=== PATIENT | male | born 1950 | race Caucasian/White ===

== ENCOUNTER 2016-08-31 11:58 | Emergency (ER) | payer OTHER ==
[2016-08-31 12:04] VITALS: BP 142/69
--- NOTE | 2016-08-31 12:51 | RAD ---
HISTORY: Head injury COMPARISONS: None TECHNIQUE: Multiple contiguous axial CT scans were obtained of the head without intravenous contrast. FINDINGS: HEMORRHAGE/INFARCT: There is no hemorrhage or acute infarct. MASSES/SHIFT: There is no mass or shift. EXTRA-AXIAL SPACES: There are no extra-axial fluid collections. SULCI AND VENTRICLES: The sulci and ventricles are normal in size and position for the patient's stated age. CEREBRUM: There are no focal parenchymal abnormalities. BRAINSTEM: There are no focal parenchymal abnormalities. CEREBELLUM: There are no focal parenchymal abnormalities. VESSELS: The vessels are grossly normal. PARANASAL SINUSES: The paranasal sinuses are clear. ORBITS: The orbits are unremarkable. BONES AND SOFT TISSUE: No bone or soft tissue abnormalities are noted. OTHER: None IMPRESSION: NO ACUTE INTRACRANIAL PATHOLOGY.
--- NOTE | 2016-08-31 13:19 | ED ---
Head Injury - HPI Summary HPI Summary: 66F presents with head injury two days ago. He dropped a shelve on head. His primary sent him in for a CT. He denies any LOC or vomiting. He denies any change in vision. He was nauseous immediately afterwards but that has resolved. He admits to fatigue but denies any lightheadedness. He is not on any blood thinners. He denies any other injury. - History Of Current Complaint Chief Complaint: EDHeadInjury Stated Complaint: HIT TO HEAD/HEADACHE,NAUSEA Time Seen by Provider: 08/31/16 12:13 Pain Intensity: 3 PMH/Surg Hx/FS Hx/Imm Hx Endocrine/Hematology History: Denies: Hx Anticoagulant Therapy, Hx Diabetes Cardiovascular History: Reports: Hx Hypertension Infectious Disease History: No Infectious Disease History: Denies: Traveled Outside the [place] in Last 30 Days - Family History Known Family History: Positive: Hypertension - Social History Alcohol Use: Occasionally Substance Use Type: Reports: None Smoking Status (MU): Never Smoked Tobacco Review of Systems Negative: Fever Negative: Chest Pain Negative: Shortness Of Breath Negative: Vomiting Positive: Headache All Other Systems Reviewed And Are Negative: Yes Physical Exam Triage Information Reviewed: Yes Vital Signs On Initial Exam: Initial Vitals Temp Pulse Resp BP Pulse Ox 98.4 F 73 17 142/69 95 08/31/16 11:59 08/31/16 11:59 08/31/16 11:59 08/31/16 11:59 08/31/16 11:59 Vital Signs Reviewed: Yes Appearance: Positive: Well-Appearing Skin: Positive: Warm, Dry Head/Face: Positive: Normal Head/Face Inspection, Other - no step off, racoon eyes, jara sign Eyes: Positive: Normal, Conjunctiva Clear ENT: Positive: Normal ENT inspection, Pharynx normal, TMs normal Respiratory/Lung Sounds: Positive: Clear to Auscultation, Breath Sounds Present Cardiovascular: Positive: Normal, RRR Neurological: Positive: Sensory/Motor Intact, Alert, Oriented to Person Place, Time, CN Intact II-III, Heel to Toe, Finger to Nose - Bailey Coma Scale Best Eye Response: 4 - Spontaneous Best Motor Response: 6 - Obeys Commands Best Verbal Response: 5 - Oriented Diagnostics - Vital Signs Vital Signs Temp Pulse Resp BP Pulse Ox 08/31/16 12:55 98.4 F 73 17 142/69 95 08/31/16 11:59 98.4 F 73 17 142/69 95 - Laboratory Lab Statement: Any lab studies that have been ordered have been reviewed, and results considered in the medical decision making process. - CT head CT Interpretation: No Acute Changes - IMPRESSION: NO ACUTE INTRACRANIAL PATHOLOGY. CT Interpretation Completed By: Radiologist Head Injury Course/Dx Course Of Treatment: 66F presents with head injury two days ago. He dropped a shelve on head. His primary sent him in for a CT. He denies any LOC or vomiting. He was nauseous immediately afterwards but that has resolved. He is not on any blood thinners. He denies any other injury. normal neuro exam. CT head normal. told to follow up with primary. patient understands and agrees with plan - Diagnoses Differential Diagnosis/HQI/PQRI: Cerebral Contusion, Concussion Without LOC, Intracranial Bleed Provider Diagnoses: Head injury Discharge - Discharge Plan Condition: Good Disposition: HOME Patient Education Materials: Head Injury (ED) Referrals: No Primary Care Phys,NOPCP [Primary Care Provider] - Additional Instructions: Take Tylenol or ibuprofen for headache every 6 hours Modify activities as tolerated Follow up with primary within 7 days Return to ED if develop vomiting, severe headache, or any new or worsening symptoms
== END 2016-08-31 13:37 | disposition home or self-care (01) ==
LOC: ED 11:58
DX: R51 Headache (principal); W22.8XXA Striking against or struck by other objects, initial encounter; R11.10 Vomiting, unspecified; R53.83 Other fatigue; S09.90XA Unspecified injury of head, initial encounter; Y93.9 Activity, unspecified; Y92.9 Unspecified place or not applicable; Y99.9 Unspecified external cause status
CPT/HCPCS: 70450; 99281

== ENCOUNTER 2017-02-28 11:58 | Day surgery (SDC) | payer OTHER ==
[~2017-02-28 11:58] MED LIST: Buffered Lidocaine 0.9% SYRIN* 5 ML/SYR SYRINGE INTRADERM ONE; DiMENhydriNATE IV* 50 MG/ML VIAL IV PUSH PRN; Famotidine IV* 10 MG/ML 2 ML (20 mg) IV ONE; Famotidine IV* 10 MG/ML 2 ML (20 mg) ONE; Morphine INJ* 2 MG/ML 1 ML CARPUJECT IV PRN; PROCHLORPERAZINE INJ 5 MG/ML 2 ML VIAL IV PRN; Scopolamine 1.5 mg* PATCH TRANSDERM PRN; ceFAZolin 2 GM PREMIX (*) 2 GM/50 ML BAG IVPB ONE; fentaNYL* 50 MCG/ML 2 ML VIAL (100 MCG VIAL) IV PRN; oxyCODONE/Acetamin 5/325 MG* TAB PO PRN
[2017-02-28] MEDS ORDERED: fentaNYL* 50 MCG/ML 2 ML VIAL (100 MCG VIAL) ONE ×2 (13:39→16:48)
[2017-02-28] MEDS ORDERED: KETAMINE HCL* 50 MG/ML 10 ML VIAL ONE (13:40)
[2017-02-28] MEDS ORDERED: Midazolam* 1 MG/ML 2 ML VIAL (2 MG) ONE (13:40)
[2017-02-28] MEDS ORDERED: Bupivacaine 0.25% SDV* 30 ML ONE (13:54)
[2017-02-28] MEDS ORDERED: Dexamethasone IV* 4 MG/ML 1 ML (4 MG) ONE (16:12)
[2017-02-28] MEDS ORDERED: Ondansetron INJ* 2 MG/ML VIAL ONE (16:12)
[2017-02-28] MEDS ORDERED: Propofol* 10 MG/ML 20 ML BTL IV PUSH ONE (16:12)
[2017-02-28] MEDS ORDERED: Ketorolac INJ* 30 MG/ML 1 ML VIAL ONE (16:12)
[2017-02-28] MEDS ORDERED: Lidocaine 2% PF * 5 ML VIAL ONE (16:12)
[2017-02-28] MEDS ORDERED: HYDROcodone/ACETAMIN 5-325 MG* 1 TAB ONE (17:50)
[2017-02-28 18:24] VITALS: BP 155/82
--- NOTE | 2017-03-03 05:27 | OP ---
OPERATIVE REPORT: DATE OF OPERATION: 03/02/17 DATE OF : 54 SURGEON: Christophe Vásquez MD SLIP FEEDER: NAVI Echavarria ANESTHESIOLOGIST: Dr. Wilson. ANESTHESIA: General. PRE-OP DIAGNOSES: 1. Left stage 4 basal joint arthritis. 2. Left scaphotrapezoid degenerative joint disease. POST-OP DIAGNOSES: 1. Left stage 4 basal joint arthritis. 2. Left scaphotrapezoid degenerative joint disease. OPERATIVE PROCEDURE: 1. Left thumb carpal-metacarpal arthroplasty with trapeziectomy and distally based slit flexor carpi radialis tendon transfer for thumb suspension. 2. Left partial trapezoidectomy with FCR tendon interposition. INDICATIONS: Pat had progressive pain, it is progressive despite nonoperative treatments and quite debilitating to him. He wanted to proceed with surgery. He understands the risk of losing some strength and some persistent pain. ESTIMATED BLOOD LOSS: 2 mL. COMPLICATIONS: None. FINDINGS: As expected. DESCRIPTION OF PROCEDURE: Jesus was seen in the preoperative holding area. Correct site, side of the procedure were identified. We came back to the operating room. The arm was prepped and draped in usual fashion. A time-out was performed. The arm was exsanguinated with the Esmarch and the tourniquet inflated to 250 mmHg. I then made a 2 to 3 cm incision from the dorsum of the thumb down to its radial styloid. Dissection was carried down and the radial artery was mobilized. There were a couple of perforators that were cauterized. I then opened subperiosteal and capsular flaps. The soft tissue was released about the trapezium with the Teller blade. The rongeur was used and the trapezium was excised en bloc. I then performed a synovectomy with a rongeur. The scaphotrapezoid joint surface was examined and it was frankly arthritic with no cartilage remaining. I took my osteotome and excised the proximal 3 to 4 mm of the trapezoid. This came out nice and clean. I axially loaded the second ray and flexed and extended the wrist and hand and I could not get the 2 bony edges to abut. At this point, I went ahead and released the soft tissue off the dorsal radial aspect of the metacarpal base. I used sequentially larger drill bits to create a drill hole from the dorsal radial metacarpal base to the volar ulnar corner of the metacarpal right towards the base of the second metacarpal where the FCR tendon inserts. This was all irrigated out and then I turned my attention to harvesting the FCR tendon. I made a 1 to 2 cm transverse incision over the distal FCR tendon right at the wrist flexion crease. The FCR tendon sheath was released and the FCR tendon was retrieved up into the wound, split longitudinally and then a 26-gauge wire was passed between the split. I made 2 more transverse incisions to release the entirety of the FCR tendon sheath. The 26-gauge wire was then pulled sequentially into the proximal 2 incisions releasing the tendon and the musculotendinous junction. The tendon split was delivered into the distal wound. The muscular remnants were debrided off and the tendon was tubularized with 4-0 Ethibond suture. The tendon was delivered into the thumb base wound using 26-gauge wire as a shuttle. The split was taken all the way down to the base of the second metacarpal. The split end of the FCR tendon was delivered through my drill hole in the metacarpal base and brought back around the intact rim of the FCR tendon. Appropriate tension was set and the tendon transfer was secured with 3-0 Ethibond sutures. First [id number] suture grabbing all 3 limbs of the tendon transfer and the second 2 jydovh-vs-fqmim sutures sewing intact limb to intact limb. Remainder of the FCR tendon was sewn into a mat. This was secured with 4-0 Vicryl suture. This was in place as an interposition between the base of the trapezoid and the distal pole of the scaphoid. This provided an excellent nice tight fit. At this point, I irrigated out the wound , capsule was closed with 4-0 Ethibond suture. Skin at all of the incisions was closed with 4-0 Monocryl suture and Steri-Strips. The area was all infiltrated with 0.25% plain Marcaine. The wounds were dressed with 4x4, sterile Webril, and a thumb spica splint was applied. Tourniquet was deflated. The patient was taken to the recovery room in stable condition. [id number]/[facility] #: [id number] [facility]
[2017-03-03] MEDS ORDERED: Scopolamine PATCH Remove* 1 NOTE MISC PATCH OFF ONE (06:15)
== END 2017-02-28 18:26 | disposition home or self-care (01) ==
LOC: OREAST 11:58
PROVIDERS: ATTEND Orthopaedic Surgery Hand Surgery
DX: M18.12 Unilateral primary osteoarthritis of first carpometacarpal joint, left hand (principal); K21.9 Gastro-esophageal reflux disease without esophagitis; F41.9 Anxiety disorder, unspecified; J45.909 Unspecified asthma, uncomplicated
CPT/HCPCS: J0690; J1100; J1885; J2250; J2405; J2704; J3010

== ENCOUNTER 2017-10-07 07:05 | Observation (INO) | payer MEDICARE, OTHER ==
--- NOTE | 2017-09-20 07:20 | HP ---
CC: Dr. Osborne's Office. HISTORY AND PHYSICAL: DATE OF PLANNED ADMISSION AND SURGERY: 10/07/17 HISTORY OF PRESENT ILLNESS: Mr. Kennedy is a 67-year-old white male who is admitted with bladder outlet obstruction and prostate enlargement for transurethral resection of the prostate. Mr. Kennedy presented to my office about three months ago with increasing obstructive voiding symptoms consisting of slow stream, hesitancy, intermittency and feeling of incomplete bladder emptying. He, however, has been having nocturia only once or twice and day frequency about four to five times. At his initial visit to my office, bladder ultrasound showed a post-void residual of 300 cc. He was started on tamsulosin with no significant improvement. He had a cystoscopy, which showed a large obstructing median lobe of the prostate with heavy bladder trabeculations. Urodynamic studies showed a high voiding detrusor pressure reaching 100 cm of water with low flow and elevated postvoid residual in excess of 300 cc. Because of the above history finding, the failure of medical treatment, the patient is admitted for transurethral resection of the prostate. The patient had a recent episode of suspected prostatitis that was treated with the course of Ceftin. His urine culture grew actinomyces and followup urine culture preoperatively was negative. His PSA in March 2017 was 1. PAST MEDICAL HISTORY AND SYSTEM REVIEW: He has history of Asthma and allergies and is maintained on: 1. Albuterol 1 to 2 puffs as needed. 2. Gaviota 180 mg daily. 3. Vfkpidap83 mg daily. 4. Symbicort 2 puffs twice a day. 5. Xyzal 5 mg daily as needed. 6. He is on multivitamins. PAST SURGICAL HISTORY: Past surgery history is relevant for bilateral vasectomy that I performed on him in 1994. No other problems. ALLERGIES: He denies any allergies to medications. FAMILY HISTORY: Negative for prostate carcinoma. PHYSICAL EXAMINATION GENERAL: Pleasant and healthy-looking white male who looks good for his age. VITAL SIGNS: Blood pressure 120/70, pulse of 70. LUNGS: Clear. HEART: Regular and rhythmic. No murmurs. ABDOMEN: Soft without any masses. There is some suprapubic distention. RECTAL EXAM: Done at his initial presentation showed slightly enlarged but nonsuspicious prostate. IMPRESSION: Bladder outlet obstruction with elevated postvoid residual of 300 cc and high voiding detrusor pressure with failure of medical treatment. History of environmental allergies and asthma. PLAN: Plan is for transurethral resection of the prostate. I discussed that the indication for the procedure and the operation. Some of the potential complications including infection, hematuria, small incidence of urethral stricture and high incidence of retrograde ejaculation. I also discussed the alternatives to the TURP, although considering the large median lobe and the large postvoid residual, I think the TURP will give him the best chance of long-term results. All his and his 's questions were answered. [id number]/[facility] #: [id number] ETHAN
[~2017-10-07 07:05] MED LIST changes: +Dexamethasone TAB* 4 MG PO ONE; -Famotidine IV* 10 MG/ML 2 ML (20 mg) ONE; -Morphine INJ* 2 MG/ML 1 ML CARPUJECT IV PRN; +Morphine INJ* 2 MG/ML 1 ML SYRINGE (TWO MG - NEW SYRINGE VERSION) IV PRN; +Naloxone* 0.4 MG/ML 1 ML VIAL IV PRN; +Ondansetron INJ* 2 MG/ML VIAL ONE; +Scopolamine 1.5 mg* PATCH TRANSDERM ONE; -Scopolamine 1.5 mg* PATCH TRANSDERM PRN; -ceFAZolin 2 GM PREMIX (*) 2 GM/50 ML BAG IVPB ONE
[2017-10-07] MEDS ORDERED: Dexamethasone TAB* 4 MG ONE (07:14)
[2017-10-07] MEDS ORDERED: cefTRIAXone(*) 2 GM ADDV.VIAL IVPB ONE (07:14)
[2017-10-07] MEDS ORDERED: Famotidine IV* 10 MG/ML 2 ML (20 mg) ONE (07:14)
[2017-10-07] MEDS ORDERED: Ondansetron ODT TAB* 4 MG ONE (07:14)
[2017-10-07] MEDS ORDERED: Scopolamine 1.5 mg* PATCH ONE (07:44)
[2017-10-07] MEDS ORDERED: Midazolam* 1 MG/ML 5 ML VIAL (5 MG) ONE (07:58)
[2017-10-07] MEDS ORDERED: KETAMINE HCL* 50 MG/ML 10 ML VIAL ONE (07:58)
[2017-10-07] MEDS ORDERED: fentaNYL* 50 MCG/ML 2 ML VIAL (100 MCG VIAL) ONE (07:58)
[2017-10-07] MEDS ORDERED: Propofol* 500 MG/50 ML BTL ONE (09:32)
[2017-10-07] MEDS ORDERED: Phenylephrine INJ* 10 MG/ML 1 ML VIAL (10 MG) ONE (09:37)
[2017-10-07] MEDS ORDERED: oxyCODONE/Acetamin 5/325 MG* TAB PO PRN (11:48)
[2017-10-07] MEDS ORDERED: Oxybutynin TAB* 5 MG PO PRN (11:49)
[2017-10-07] MEDS ORDERED: Lidocaine 2% JELLY* 6 ML JELLY TOPICAL PRN (11:53)
[2017-10-07] MEDS ORDERED: Naproxen TAB* 250 MG PO PRN (12:03)
[2017-10-07] MEDS ORDERED: Albuterol HFA INHALER* 8 gm MDI INH PRN (12:09)
[2017-10-07] MEDS ORDERED: Tamsulosin CAP* 0.4 MG PO SCH (18:00)
[2017-10-07] MEDS ORDERED: Cetirizine* 10 MG TAB PO SCH (21:00)
--- NOTE | 2017-10-07 21:10 | OP ---
CC: Dr. Osborne * DATE OF OPERATION: 10/07/17 - ROOM #331 DATE OF : 54 SURGEON: Mike Donahue MD ANESTHESIOLOGIST: León Hunt MD ANESTHESIA: Spinal. PRE-OP DIAGNOSES: 1. Benign prostatic hyperplasia. 2. Bladder outlet obstruction. POST-OP DIAGNOSES: 1. Benign prostatic hyperplasia. 2. Bladder outlet obstruction. OPERATIVE PROCEDURE: 1. Cystoscopy. 2. Transurethral resection of the prostate. INDICATIONS: Mr. Kennedy is a 67-year-old white male who had a long history of bladder outlet obstruction characterized by frequency, slow stream, and large post void residual of about 300 cc. He did not improve on tamsulosin. Cystoscopy showed a large obstructing median lobe of the prostate and partially obstructing lateral lobes. Urodynamic studies showed high voiding detrusor pressure consistent with bladder outlet obstruction and good detrusor function. Because of the above history and findings, the failure of medical treatment, the above operation was advised and accepted. PATHOLOGY AT CYSTOSCOPY: The penile and bulbar urethrae looked normal. The prostatic urethra measured 3 cm in length and there was significant degree of obstruction mostly by a large median lobe and an elevated bladder neck. There was also a moderate obstruction by enlargement of the lateral lobes of the prostate. Examination of the bladder showed diffuse heavy trabeculations. There were two orthotopic normal-looking ureteral orifices. No suspicious bladder lesions were seen. No calculi or diverticula were noted. The prostate adenoma was only moderately vascular. DESCRIPTION OF PROCEDURE: After successful spinal anesthesia, the patient was placed in the lithotomy position and was prepped and draped for cystoscopy. Cystoscopy was performed. The bladder was carefully inspected and the above findings were noted. The resectoscope was then introduced inside the bladder. Mannitol-sorbitol was used for irrigation and the inflow and outflow were adjusted to avoid overdistention of the bladder. Resection of the median lobe was performed first down to the level of the bladder neck muscle fibers. The occluding prostate tissue projecting inside the bladder neck was then resected circumferentially. The floor of the prostatic fossa was then resected to the level of the verumontanum allowing the visualization of the bladder neck from the veru level. The left lobe was then resected starting at 5 o'clock and proceeding anteriorly. The right lobe was resected next. The roof and the apical tissues were resected last. The limits of the resection were the bladder neck proximally, the verumontanum distally, and the capsule circumferentially. There was, however, an open sinus at 11 o'clock in the mid prostatic urethra level. At the completion of the procedure, the verumontanum and external sphincter were intact. The prostatic fossa was wide open. The ureteral orifices were intact. There was good hemostasis except some oozing of blood from the open sinus. After thorough irrigation of the bladder and evacuation of all the prostate chips, the resectoscope was removed and a size 22-Lithuanian Montero catheter was passed inside the bladder and the balloon inflated with 40 cc of water. The catheter was placed under gentle traction and taped to the right thigh of the patient. Irrigation yielded clear returns. The patient tolerated the procedure well and left the operating room in good condition. The blood loss was estimated at about 50 cc. The irrigation fluid was all accounted for indicating no absorption. The specimen was prostate chips. [id number]/[facility] #: [id number] [facility]
[2017-10-07] MEDS: Mometasone/Formoter 200/5 MDI INH SCH (22:01)
[2017-10-08] MEDS ORDERED: cefTRIAXone(*) 1 GM in NS 0.9% 50 ML* 50 ML IVPB ONE (07:00)
[2017-10-08] MEDS ORDERED: CMCS: LoraTADine TAB(NF) 10 MG TAB (AUTOSUB to CETIRIZINE) PO SCH (09:00)
[2017-10-08] MEDS ORDERED: Pseudoephedrine HCL ER TAB* 120 MG PO SCH (09:00)
[2017-10-08] MEDS ORDERED: OSTEO BI FLEX PO SCH (09:00)
[2017-10-08] MEDS ORDERED: Vitamin THERAPEUTIC TAB PO SCH (09:00)
[2017-10-08] MEDS ORDERED: Cholecalciferol TAB* 1000 UNITS PO SCH (09:00)
[2017-10-08] MEDS ORDERED: Cyanocobalamin TAB* 500 MCG PO SCH (09:00)
[2017-10-08 09:27] VITALS: BP 101/84
[2017-10-08] MEDS: Mometasone/Formoter 200/5 MDI INH SCH (09:40)
--- NOTE | 2017-10-08 10:14 | DS ---
DISCHARGE SUMMARY: DATE OF ADMISSION: 10/07/17 DATE OF DISCHARGE: 10/08/17 FINAL DIAGNOSES: 1. Benign prostatic hyperplasia. 2. Bladder outlet obstruction. OPERATION: Transurethral resection of the prostate on 10/07/17. HISTORY: Mr. Kennedy is a 67-year-old while male who had progressive history of worsening obstructive voiding symptoms with slow stream, hesitancy, intermittency, and feeling of incomplete bladder emptying. No history of urinary tract infections or gross hematuria. Work-up in the office showed a postvoid residual of 300 cc. Cystoscopy showed a large obstructing prostate mostly by an obstructing median lobe. Urodynamic studies showed high voiding detrusor pressure, and while on tamsulosin, a postvoid residual in excess of 300 cc. Because of the above history, the failure of medical treatment, he was advised to undergo transurethral resection of the prostate. His PSA in March 2017 was 1. PAST MEDICAL HISTORY: He has history of asthma and environmental allergies. He is otherwise in excellent health. MEDICATIONS: He is maintained on: 1. Albuterol as needed. 2. Gaviota daily. 3. Claritin 10 mg daily. 4. Symbicort 2 puffs twice a day. 5. Xyzal 5 mg daily as needed. ALLERGIES: No allergies to medications. PHYSICAL EXAMINATION: Preoperative physical exam was all within normal. Rectal exam showed a moderately enlarged, but nonsuspicious prostate. LABORATORY DATA: Preoperative lab work was all within normal. COURSE IN HOSPITAL: The patient was admitted the morning of his surgery. He underwent an uncomplicated transurethral resection of the prostate. He was kept overnight for observation. He did very well. During the night his heart rate went down to 40 during his sleep, but his blood pressure was maintained and he was totally asymptomatic from it. When he woke up, his heart rate went up to normal. In the morning, urine was pink to light ambrose without any clots. Instructions were given for followup care. Patient will be seen in the office in 5 or 6 days for Montero catheter removal. Pathology on the resected prostate tissue was benign. [id number]/[facility] #: [id number] MTDD
[2017-10-10] MEDS ORDERED: Scopolamine PATCH Remove* 1 NOTE MISC PATCH OFF ONE (06:00)
== END 2017-10-08 10:05 | disposition home or self-care (01) ==
LOC: OR 07:05 → SSU 11:30
PROVIDERS: ADMIT Urology; ATTEND Urology
DX: N40.0 Benign prostatic hyperplasia without lower urinary tract symptoms (principal); Z79.899 Other long term (current) drug therapy; J45.909 Unspecified asthma, uncomplicated
CPT/HCPCS: 88305; A9270-GY; G0378; J0696; J2250; J2704; J3010; J8540

== ENCOUNTER → 2018-08-30 01:41 | Emergency (ER) | payer MEDICARE, OTHER ==
--- NOTE | 2018-08-30 03:25 | ED ---
Palpitations / Dysrhythmia - HPI Summary HPI Summary: This pt is a 68 y/o male [facility] [place]/o rapid heart rate today at about 01:00. Pt reports he had just gone to bed at around 0100 when he felt "muscle spasms" on his back that were rapid and uneven. He was not sleeping. Pt got a stethoscope out from his blood pressure kit and heard his heart beat going fast. He felt associated symptom of tightness on left sided jaw. Denies chest pain. Pt did not count his pulse. He states this episode of fast heart rate lasted about 15 minutes and resolved. Pt also reports doing relaxation and breathing techniques to alleviate symptoms. Currently denies palpitations, chest pain, nausea, vomiting. He states feeling better now. Pt has an upcoming appointment on 09/03/[address] Willson. PMHx: heart murmur. Pt had KAREN done 5 days ago after he was referred by his PCP when he was found to have a heart murmur. He notes he had pneumonia a couple of weeks ago and was placed on antibiotics for 1 week. Pt states he has been feeling winded easily for about 1 week now. - History of Current Complaint Chief Complaint: EDDysrhythmPalp Time Seen by Provider: 08/30/18 03:07 Hx Obtained From: Patient Onset/Duration: Lasting Minutes - 15, Resolved Severity Initially: Moderate Severity Currently: None Character: Fast Aggravating: Nothing Alleviating: Nothing Associated Signs & Symptoms: Negative - Allergy/Home Medications Allergies/Adverse Reactions: Allergies Allergy/AdvReac Type Severity Reaction Status Date / Time Cats Allergy See Comment Uncoded 08/30/18 03:10 PMH/Surg Hx/FS Hx/Imm Hx Endocrine/Hematology History: Denies: Hx Anticoagulant Therapy, Hx Diabetes Cardiovascular History: Reports: Hx Hypertension, Hx Valvular Heart Disease Denies: Hx Angina, Hx Pacemaker/ICD, Other Cardiovascular Problems/Disorders Respiratory History: Reports: Hx Asthma - ON MEDICATION FOR Musculoskeletal History: Reports: Hx Arthritis - LEFT HAND Sensory History: Reports: Hx Cataracts - LEFT, BEGINNING STAGE, Hx Contacts or Glasses Denies: Hx Hearing Aid Opthamlomology History: Reports: Hx Cataracts - LEFT, BEGINNING STAGE, Hx Contacts or Glasses Neurological History: Reports: Hx Migraine - TX WITH EXCEDRIN MIGRAINE AND REST Psychiatric History: Reports: Hx Anxiety - HX OF IN THE PAST, Hx Depression - HX OF IN THE PAST - Surgical History Surgery Procedure, Year, and Place: TONSILLECTOMY A CHILD. BIOPSIES DONE IN A OFFICE SETTING Hx Anesthesia Reactions: No Infectious Disease History: No Infectious Disease History: Denies: Traveled Outside the [place] in Last 30 Days - Family History Known Family History: Positive: Hypertension - Social History Alcohol Use: Rare Alcohol Amount: 1-2 BEERS, LAST WAS 08/16/2017 Substance Use Type: Reports: None Smoking Status (MU): Former Smoker Type: Cigarettes Amount Used/How Often: UP TO 1 PACK PER WEEK X 10 YEARS Length of Time of Smoking/Using Tobacco: 10 YEARS Have You Smoked in the Last Year: No Review of Systems Negative: Fever ENT: Other - POSITIVE: tightness on left jaw Positive: Palpitations. Negative: Chest Pain Negative: Vomiting, Nausea All Other Systems Reviewed And Are Negative: Yes Physical Exam - Summary Physical Exam Summary: VITAL SIGNS: Reviewed. GENERAL: Patient is a well-developed and nourished male who is lying comfortable in the stretcher. Patient is not in any acute respiratory distress. HEAD AND FACE: No signs of trauma. No ecchymosis, hematomas or skull depressions. No sinus tenderness. EYES: PERRLA, EOMI x 2, No injected conjunctiva, no nystagmus. EARS: Hearing grossly intact. Ear canals and tympanic membranes are within normal limits. MOUTH: Oropharynx within normal limits. NECK: Supple, trachea is midline, no adenopathy, no JVD, no carotid bruit, no c- spine tenderness, neck with full ROM. CHEST: Symmetric, no tenderness at palpation LUNGS: Clear to auscultation bilaterally. No wheezing or crackles. CVS: Regular rate and rhythm, S1 and S2 present, no gallops appreciated. Patient has a 3/6 systolic murmur over the apex. ABDOMEN: Soft, non-tender. No signs of distention. No rebound no guarding, and no masses palpated. Bowel sounds are normal. EXTREMITIES: FROM in all major joints, no edema, no cyanosis or clubbing. NEURO: Alert and oriented x 3. No acute neurological deficits. Speech is normal and follows commands. SKIN: Dry and warm Triage Information Reviewed: Yes Vital Signs On Initial Exam: Initial Vitals Temp Pulse Resp BP Pulse Ox 98 F 77 20 160/93 97 08/30/18 01:43 08/30/18 01:43 08/30/18 01:43 08/30/18 01:43 08/30/18 01:43 Vital Signs Reviewed: Yes Diagnostics - Vital Signs Vital Signs Temp Pulse Resp BP Pulse Ox 08/30/18 03:04 71 20 96 08/30/18 03:03 68 15 139/83 95 08/30/18 01:43 98 F 77 20 160/93 97 - Laboratory Result Diagrams: 08/30/18 03:40 08/30/18 03:40 Lab Statement: Any lab studies that have been ordered have been reviewed, and results considered in the medical decision making process. - EKG 01:52 Cardiac Rate: NL - at 75 bpm EKG Rhythm: Sinus Rhythm Summary of EKG Findings: Normal axis. Normal interval. No ischemic changes Course/Dx - Course Assessment/Plan: Pt is a 68 y/o male presenting to [facility] c/o rapid heart rate today at about 01:00. He felt associated symptom of tightness on left sided jaw. Denies chest pain. Pt states this episode of fast heart rate lasted about 15 minutes and resolved. Pt also reports doing relaxation and breathing techniques to alleviate symptoms. Currently denies palpitations, chest pain, nausea, vomiting. He states feeling better now. Test results without any significant abnormalities. EKG shows normal sinus rhythm at 75 bpm. Pt will be discharged home with follow up from Dr. Willson as planned on Saturday. He was given instructions to return to the ED for any worsening or new symptoms. - Diagnoses Provider Diagnoses: Palpitations Discharge - Sign-Out/Discharge Documenting (check all that apply): Patient Departure - Discharge home Patient Received Moderate/Deep Sedation with Procedure: No - Discharge Plan Condition: Stable Disposition: HOME Patient Education Materials: Heart Palpitations (ED) Referrals: Shannon Osborne MD [Primary Care Provider] - Jefferson Willson MD [Medical Doctor] - Additional Instructions: Please follow up with Dr. Willson, veterans service representative, as planned. RETURN TO EMERGENCY DEPARTMENT FOR ANY NEW OR WORSENING SYMPTOMS. - Attestation Statements Document Initiated by Scribe: Yes Documenting Scribe: Kym See Provider For Whom Scribe is Documenting (Include Credential): Lucille Rhodes MD Scribe Attestation: Kym Arana, scribed for Lucille Rhodes MD on 08/30/18 at 0458. Status of Scribe Document: Ready
[2018-08-30 03:48] LABS: ABS Eosinophils 0.2 10^3/ul (0-0.6); ABS Lymphocytes 2.1 10^3/ul (1.0-4.8); ABS Monocytes 0.5 10^3/ul (0-0.8); Eosinophil % 2.9 %; Hematocrit 41 % (42-52); Hemoglobin 14.1 g/dL (14.0-18.0); Lymphocyte % 35.6 %; Mean Corpuscular HGB Conc 35 g/dL (31-36); Mean Corpuscular Hemoglobin 34 pg (27-31); Mean Corpuscular Volume 98 fL (80-94); Mean Platelet Volume 9.1 fL (7.4-10.4); Nucleated Red Blood Cells % 0.2; Platelet Count 146 10^3/uL (150-450); Red Blood Count 4.18 10^6 /uL (4.18-5.48); Red Cell Distribution Width 13 % (10-15); White Blood Count 5.9 10^3/uL (3.5-10.8)
[2018-08-30 03:55] LABS: INR 0.97 (0.82-1.09)
[2018-08-30 04:05] LABS: Albumin 3.5 g/dL (3.2-5.2); Albumin/Globulin Ratio 1.6 (1-3); BUN/Creatinine Ratio 20.2 (8-20); Calcium 8.7 mg/dL (8.6-10.3); EGFR African American 97.2 (>60); EGFR Non-African American 80.3 (>60); Globulin 2.2 g/dL (2-4); Magnesium 1.9 mg/dL (1.9-2.7); Potassium 4.1 mmol/L (3.5-5.0); Total Bilirubin 0.7 mg/dL (0.2-1.0); Total Protein 5.7 g/dL (6.4-8.9)
[2018-08-30 04:07] LABS: Troponin I 0.01 ng/mL (<0.04)
[2018-08-30 04:35] LABS: TSH (Thyroid Stimulating Horm) 5.07 mcIU/mL (0.34-5.60)
[2018-08-30 05:04] VITALS: BP 136/85
== END | disposition home or self-care (01) ==
LOC: ED 01:41
DX: R00.2 Palpitations (principal); I10 Essential (primary) hypertension; I38 Endocarditis, valve unspecified; Z87.891 Personal history of nicotine dependence
CPT/HCPCS: 36415; 80053; 83735; 84443; 84484; 85025; 85610; 85730; 93005; 99283

== ENCOUNTER → 2018-09-08 10:06 | Day surgery (SDC) | payer MEDICARE ==
[~2018-09-08 10:06] MED LIST changes: +Acetaminophen TAB* 325 MG PO PRN; -Buffered Lidocaine 0.9% SYRIN* 5 ML/SYR SYRINGE INTRADERM ONE; -Dexamethasone TAB* 4 MG PO ONE; -DiMENhydriNATE IV* 50 MG/ML VIAL IV PUSH PRN; +Diazepam TAB(*) 5 MG ONE; -Famotidine IV* 10 MG/ML 2 ML (20 mg) IV ONE; +Heparin 2 UNITS/ML IVPREMIX* 2,000 UNIT/1,000 ML BAG IV ONE; +Heparin(*) 1000 UNIT/ML 10 ML VIAL CATH LAB IV ONE; +Iohexol 350 (CONTRAST) 200 ML MDV IV ONE; +Lidocaine 1% INJ* 10 MG/ML 30 ML SDV ONE; +Midazolam* 1 MG/ML 5 ML VIAL (5 MG) ONE; -Morphine INJ* 2 MG/ML 1 ML SYRINGE (TWO MG - NEW SYRINGE VERSION) IV PRN; +NS 0.9% 1000 ML** 1,000 ML IV SCH; -Naloxone* 0.4 MG/ML 1 ML VIAL IV PRN; -Ondansetron INJ* 2 MG/ML VIAL ONE; -PROCHLORPERAZINE INJ 5 MG/ML 2 ML VIAL IV PRN; -Scopolamine 1.5 mg* PATCH TRANSDERM ONE; +VERAPAMIL 2.5 MG/ML 2 ML VIAL ** 5 mg/2 ml ONE; +diPHENhydraMINE PO* 25 MG ONE; -fentaNYL* 50 MCG/ML 2 ML VIAL (100 MCG VIAL) IV PRN; +fentaNYL* 50 MCG/ML 2 ML VIAL (100 MCG VIAL) ONE; +nitroGLYCERIN DRIP* 25,000 MCG/250 ML BTL ONE; -oxyCODONE/Acetamin 5/325 MG* TAB PO PRN
[2018-09-08 15:23] VITALS: BP 121/63
--- NOTE | 2018-09-09 10:01 | CATH ---
CC: Dr. Osborne; Dr. Timothy Ambrocio, [place], [place]. * CARDIAC CATHETERIZATION REPORT: DATE OF CATHETERIZATION: 09/08/18 - [facility] CATH PROCEDURE: Cardiac catheterization including coronary angiography and left heart catheterization. INDICATION: Mitral regurgitation. The patient is a 68-year-old gentleman with a history of slight murmur. This murmur was noted to be significantly worse on recent physical exam. Echocardiogram showed severe mitral valve prolapse of the posterior leaflet of the mitral valve with [id number] mitral regurgitation and left atrial enlargement. Cardiac catheterization was recommended in anticipation of mitral valve repair. PROCEDURE: The patient was brought to the procedure room in a fasting state. Informed consent had been obtained prior to the procedure. All labs were reviewed. The patient was placed supine on the procedure table. His right radial area was prepped and draped in usual fashion. A 1% lidocaine was used for local anesthesia. The radial artery was entered by a Seldinger technique and a 6-Peruvian hydrophilic sheath was placed. An infusion of heparin, nitroglycerin, and verapamil was given through the sheath itself. The patient underwent coronary angiography and left heart catheterization using a JL3.5 catheter and a 5-Peruvian AR1 catheter. At the end of the procedure, all the sheaths and catheters were removed. The tolerated the procedure well and no complications. A total of 45 cc of Omnipaque dye was used. A total of 4.2 minutes of fluoro time was used. HEMODYNAMICS: Central aortic blood pressure 117/75 with a mean of 94. Left ventricular pressure 119/10 with an end-diastolic pressure of 18. CORONARY ARTERIES: 1. Left main artery: The left main was normal in size. It trifurcated into the LAD, ramus artery and circumflex artery. There was no evidence of stenosis. 2. Left anterior descending artery: The LAD was normal in size. It gave off 1 diagonal vessel. There was no evidence of stenosis. 3. Ramus artery. The ramus artery was a moderate sized vessel. There was no evidence of stenosis. 3. Left circumflex artery: The left circumflex artery was normal in size. It gave off 2 obtuse marginal branches. There was no evidence of stenosis. 4. Right coronary artery: The RCA is the large dominant vessel. It gave off the PDA and 2 posterolateral branches. There was no evidence of stenosis. IMPRESSION: 1. Normal coronary arteries. 2. Normal end-diastolic pressure. 3. Successful right radial artery catheterization. RECOMMENDATIONS: The patient will be evaluated for mitral valve repair. [id number]/[facility] #: [id number] ETHAN
== END | disposition home or self-care (01) ==
LOC: CHICATH 10:06
PROVIDERS: ATTEND Specialist
DX: I08.3 Combined rheumatic disorders of mitral, aortic and tricuspid valves (principal); R94.39 Abnormal result of other cardiovascular function study; R00.2 Palpitations; J45.909 Unspecified asthma, uncomplicated; F41.8 Other specified anxiety disorders; Q21.1 Atrial septal defect; Z87.891 Personal history of nicotine dependence
CPT/HCPCS: 93458; 99156; A9270-GY; J1644; J2250; J3010

== ENCOUNTER 2018-12-16 17:41 | Emergency (ER) | payer MEDICARE, OTHER ==
--- OUTSIDE RECORDS SUMMARY | 2018-12-16 18:26 | XMS REPORT | Continuity of Care Document ---
:1950 External Reference #:[id number] Author Name Cate Mensah NP (transmitted by agent of provider Kely Butts) Address [address] [place] [address] Care Team Providers Name Role Phone Shannon Osborne MD Care Team Information Mechanical System Technician [phone] Problems Active Problems Provider Date Allergic rhinitis due to pollen Song Cristina MD Onset: 08/26/2015 Allergic rhinitis Song Cristina MD Onset: 08/26/2015 Moderate persistent asthma, Snog Cristina MD Onset: 08/26/2015 uncomplicated Allergic rhinitis due to animals Nelly S. Lulastermdanica, RPA-C Onset: 2016 Idiopathic urticaria Nelly S. Lulastermacher, RPA-C Onset: 03/21/2016 Uncomplicated moderate persistent Nelly S. Fenstermacher, RPA-C Onset: 2016 asthma Exacerbation of moderate persistent Nelly S. Fenstermacher, RPA-C Onset: asthma Social History Type Date Description Comments Sex Unknown Tobacco Use Start: Unknown End: Unknown Former Cigarette Smoker Smoking Status Reviewed: 05/21/18 Former Cigarette Smoker Tobacco Use Start: Unknown End: Unknown Patient is a former smoker Allergies, Adverse Reactions, Alerts Description No Known Drug Allergies Medications Active Medications SIG Qnty Indications Ordering Date Provider Levocetirizine take 1 tablet by 30tabs J30.1 León Hannah, Dihydrochloride mouth daily at [facility] 9 5mg bedtime Tablets Symbicort inhale 2 puffs by 10.2units J30.1 León Hannah, mouth twice a day RPA-C 6 160-4.5mcg/Act Rinse mouth after Aerosol use Proair HFA 2 puffs every 4 as 8.500gm Christopher A. 108(90Base) needed MD Jonnie 0 mcg/Act Aerosol [place] Allergy 1 tab everyday as Unknown 180mg needed 0 Tablets Warfarin Sodium take 1 tablet by Unknown 1mg mouth Today And 0 Tablets Tomorrow, Then One as Directed. Max. Daily Dose Is One Tab Ra Pain Relief take 2 tablets by Unknown Acetaminophen mouth every 6 0 325mg hours if needed Tablets for fever Of 101 ... (Refer To Prescription Notes). Metoprolol Tartrate take One And 1/2 Unknown tablets by mouth 0 25mg Tablets twice a day Ferrous Gluconate take 1 tablet by Unknown mouth twice a day 0 324(38Fe) mg Tablets Folic Acid take 1 tablet by Unknown 1mg Tablets mouth once daily 0 Aspirin 81 take 1 tab by Unknown 81mg Tablets mouth daily. [address] Docusate Sodium take 1 cap by Unknown 100mg mouth twice daily. 0 Capsules Daily-[place] 1 by mouth every Unknown Tablets day 0 Levothyroxine Sodium Unknown 0 25mcg Tablets Probiotic Unknown Capsules 0 Immunizations Description No Information Available Vital Signs Date Vital Result Comment 11/28/2018 2:51pm BP Systolic 107 mmHg BP Diastolic 65 mmHg Height 69 inches 5'9" Weight 204.00 lb BMI (Body Mass Index) 30.1 kg/m2 Heart Rate 73 /min O2 % BldC Oximetry 95 % 05/21/2018 1:52pm BP Systolic 130 mmHg BP Diastolic 84 mmHg Height 69 inches 5'9" Weight 204.00 lb BMI (Body Mass Index) 30.1 kg/m2 Heart Rate 76 /min Respiratory Rate 18 /min Body Temperature 97.4 F O2 % BldC Oximetry 95 % Results Description No Information Available Procedures Description No Information Available Medical Devices Description No Information Available Encounters Description No Information Available Assessments Description No Information Available Plan of Treatment No Information Available Functional Status Description No Information Available Mental Status Description No Information Available Referrals Description No Information Available
--- OUTSIDE RECORDS SUMMARY | 2018-12-16 18:26 | XMS REPORT | Continuity of Care Document ---
:1950 External Reference #:[id number] Author Name Jefferson Willson M.D. (transmitted by agent of provider Winsome Tyson) Address [address] [place] [address] Care Team Providers Name Role Phone Shannon Osborne MD - Internal Care Team Information Salesperson [employer] Medicine Problems Active Problems Provider Date Localized, primary osteoarthritis of the wrist Christophe Vásquez MD Onset: Localized, primary osteoarthritis of the hand Christophe Vásquez MD Onset: 01/22 Social History Type Date Description Comments Sex Unknown Tobacco Use Start: Unknown 03/05 PPD hx 10 quit 40 yrs ago Smoking Status Reviewed: 11/18/18 1/2 PPD hx 10 quit 40 yrs ago ETOH Use Currently consumes alcohol ETOH Use Rarely consumes alcohol Recreational Drug Use Denies Drug Use Exercise Type/Frequency Does not exercise Allergies, Adverse Reactions, Alerts Active Allergies Reaction Severity Comments Date Paxil 01/18/2017 Effexor 01/18/2017 Medications Active Medications SIG Qnty Indications Ordering Date Provider Amoxicillin take 4 tablets by 4tabs I34.0 Jefferson Ray 11/18/2018 500mg Tablets mouth 1 hour Edita Willson before dental procedure Acetaminophen 2 every 4 hours Unknown 11/17/2018 325mg as needed for Tablets pain Ascorbic Acid 1 tab by mouth Unknown 11/17/2018 500mg daily Tablets Aspirin 81 1 by mouth every Unknown 11/17/[address] Folic Acid take one Unknown 11/17/2018 1mg Tablets capsule/tablet daily by mouth Furosemide 1 by mouth every Unknown 11/17/2018 20mg Tablets day Metoprolol Tartrate 1.5 tabs by mouth Unknown 11/17/2018 25mg twice a day Tablets Potassium Chloride SA 1 tab by mouth Unknown 11/17/2018 10 Meq Tablet daily Coumadin 1 by mouth every 30tabs Jefferson Ray 11/10/2018 1mg Tablets day as directed Edita Willson Symbicort 2 puff twice a Unknown 160-4.5mcg/Act day Aerosol Xyzal Allergy 24HR 1 by mouth every Unknown 5mg day Tablets Allergy Relief 1 by mouth every Unknown 180mg day Tablets Levothyroxine Sodium 1 by mouth every Unknown day 25mcg Tablets Probiotic 2 by mouth every Unknown Capsules day Multivitamin Gummies 2 gummies by Unknown Mens mouth daily Chewtabs Albuterol Sulfate HFA 1-2 puffs every Unknown 6 hours as needed 108(90Base) mcg/Act Aerosol Ferrous Gluconate 1 by mouth twice Unknown daily 324(38Fe) mg Tablets Medications Administered in Office Medication SIG Qnty Indications Ordering Provider Date Celestone 3 mg and 3mg Christophe Vásquez MD 01/18/2017 Injection Immunizations Description No Information Available Vital Signs Date Vital Result Comment 11/18/2018 1:27pm Height 69 inches 5'9" Weight 198.00 lb without shoes Heart Rate 80 /min radial regular BP Systolic Sitting 104 mmHg Lue reg cuff BP Diastolic Sitting 70 mmHg Lue reg cuff BP Systolic Standing 102 mmHg Lue reg cuff BP Diastolic Standing 68 mmHg Lue reg cuff BMI (Body Mass Index) 29.2 kg/m2 Ejection Fraction 60-65% ECHO 08/20/18 09/17/2018 9:27am Height 69 inches 5'9" Weight 206.12 lb with shoes Heart Rate 68 /min radial, skipped beat BP Systolic Sitting 126 mmHg LA, reg cuff BP Diastolic Sitting 74 mmHg LA, reg cuff BP Systolic Standing 114 mmHg LA, reg cuff BP Diastolic Standing 70 mmHg LA, reg cuff BMI (Body Mass Index) 30.4 kg/m2 Ejection Fraction 60%-65% echo 08/20/18 Results Test Date Facility Test Result H/L Range Note Inr/Protime 11/17/2018 [facility] Inr 1.19 High 0.82-1.[address] [place] [address] [phone] Inr/Protime 11/13/2018 [facility] Inr 1.31 High 0.82-1.[address] [place] [address] [phone] 1 Standard intensity warfarin therapeutic range: 2.0-3.0 High intensity warfarin therapeutic range: 2.5-3.5 2 Standard intensity warfarin therapeutic range: 2.0-3.0 High intensity warfarin therapeutic range: 2.5-3.5 Procedures Date Code Description Status 09/08/2018 86821 Left Heart Cath. Incl S/I Coronaries, Angio S/I V Gram If Completed Done 09/03/2018 57322 EKG Tracing & Interpretation Completed 08/26/2018 60234 Moderate Sedation Services; Same Phys Intl 15 Mins; PT >= Completed 5 Years 08/26/2018 22074 Color Flow Doppler/Interp & Reprt Completed 08/26/2018 59003 Pulse Wave/Continuous-Interp.RPT Completed 08/26/2018 85344 Echocardiography, Transesophageal, Real Time W/Image 2D Completed W/W/O M-M 08/20/2018 08344 ECHO Transthorasic Realtime 2D W Doppler & Color Flow Hosp Completed Medical Devices Description No Information Available Encounters Type Date Location Provider Dx Diagnosis Office Visit 11/18/2018 [facility] Jefferson Ray I34.0 Nonrheumatic mitral 1:15p Of [employer] AT ANJEL Willson M.D. (valve) insufficiency I34.1 Nonrheumatic mitral (valve) prolapse Office Visit 09/17/2018 9:30a [facility] Dayan STrey I34.0 Nonrheumatic mitral Milo, N.P. (valve) insufficiency I34.1 Nonrheumatic mitral (valve) prolapse R01.1 Cardiac murmur, unspecified Office Visit 09/03/2018 11:45a [facility] Jefferson Ray I34.0 Nonrheumatic mitral Of Tyrone Willson M.D. (valve) insufficiency I34.1 Nonrheumatic mitral (valve) prolapse Assessments Date Code Description Provider 11/18/2018 I34.0 Nonrheumatic mitral (valve) insufficiency Jefferson Willson M.D. 11/18/2018 I34.1 Nonrheumatic mitral (valve) prolapse Jefferson Willson M.D. 09/17/2018 I34.0 Nonrheumatic mitral (valve) insufficiency Dayan Pedraza, N.P. 09/17/2018 I34.1 Nonrheumatic mitral (valve) prolapse Dayan Pedraza, N.P. 09/17/2018 R01.1 Cardiac murmur, unspecified Dayan Pedraza, N.P. 09/08/2018 I34.0 Nonrheumatic mitral (valve) insufficiency Jefferson Willson M.D. 09/03/2018 I34.0 Nonrheumatic mitral (valve) insufficiency Jefferson Willson M.D. 09/03/2018 I34.1 Nonrheumatic mitral (valve) prolapse Jefferson Willson M.D. 08/26/2018 I34.0 Nonrheumatic mitral (valve) insufficiency Jefferson Willson M.D. 08/26/2018 I34.1 Nonrheumatic mitral (valve) prolapse Jefferson Willson M.D. 08/20/2018 R01.1 Cardiac murmur, unspecified Irineo Muñoz M.D. Plan of Treatment Future Appointment(s):01/06/2019 1:15 pm - Jefferson Willson M.D. at [facility]12/19/2018 10:00 am - Ica ECHO Schedule at [facility]12/17/2018 11:00 am - Nurse Visit IC at [facility]12/16/2018 11:30 am - Nurse Visit IC at [facility]11/18/2018 - Jefferson Willson M.D.I34.0 Nonrheumatic mitral (valve) insufficiencyNew Medication:Amoxicillin 500 mg - take 4 tablets by mouth 1 hour before dental procedureNew Orders:Echocardiogram, Scheduled: 12/19/18Holter Monitor, Scheduled : 12/16/18Follow up:6 weeksRecommendations:Continue to increase walking and lifting at a reasonable rateI34.1 Nonrheumatic mitral (valve) prolapse Functional Status Description No Information Available Mental Status Description No Information Available Referrals Refer to Dr Reason for Referral Status Appt Date Timothy Ambrocio MD Sent [address] [place], [place] [id number] [phone]
--- OUTSIDE RECORDS SUMMARY | 2018-12-16 18:26 | XMS REPORT | Continuity of Care Document ---
:1950 External Reference #:[id number] Author Name Cate Mensah NP (transmitted by agent of provider Song Cristina) Address [address] [place] [id number] Care Team Providers Name Role Phone Shannon Osborne MD Care Team Information Vocational Aide [phone] Problems Active Problems Provider Date Allergic rhinitis due to pollen Song Cristina MD Onset: 08/26/2015 Allergic rhinitis Song Cristina MD Onset: 08/26/2015 Moderate persistent asthma, Song Cristina MD Onset: 08/26/2015 uncomplicated Allergic rhinitis due to animals Nelly S. Chinaermdanica, RPA-C Onset: 2016 Idiopathic urticaria Nelly S. Lulastermler, RPA-C Onset: 03/21/2016 Uncomplicated moderate persistent Nelly [...] J30.1 León Hannah, Dihydrochloride mouth daily at [facility] 9 5mg bedtime Tablets Symbicort inhale 2 puffs by 10.2units J30.1 León Hannah, mouth twice a day [facility] 6 160-4.5mcg/Act Rinse mouth after Aerosol use [...] Unknown 100mg mouth twice daily. 0 Capsules Daily-Solo 1 by mouth every Unknown Tablets day [...] % Results Description No Information Available Procedures Date Code Description Status 11/28/2018 31275 Nitric Oxide Gas Determination Completed 11/28/2018 78920 Bronchodilation Responsiveness Spirometry Pre/Post Completed Bronchodil Adm Medical Devices Description No Information Available Encounters Type Date Location Provider Dx Diagnosis Office Visit 11/28/2018 Ramon Mensah NP J45.41 Moderate persistent 2:30p asthma with (acute) exacerbation J30.1 Allergic rhinitis due to pollen Assessments Date Code Description Provider 11/28/2018 J45.41 Moderate persistent asthma with (acute) Cate Mensah NP exacerbation 11/28/2018 J30.1 Allergic rhinitis due to pollen Cate Mensah NP Plan of Treatment Future Appointment(s):05/29/2019 10:00 am - Cate Mensah NP at [id number] - Cate Mensah NPJ45.41 Moderate persistent asthma with (acute) exacerbationComments:Patient presents for the evaluation, treatment and management of moderate persistent asthma. He recently had mitral valve repair. Today his PFT revealed;FEV1 64, FEV1/FCC 89, FEF 2575 43 post test reveals 70, 95, 53 with 22% reversibility.NiOx 18 PPB. Given that he is asymptomatic and recently had mitral valve repair even though his PFT is worse that last time, I feel I should not change his medications, but recheck in 6 months as he is still recovering from his surgery and increased steroids with increase cardiac stress response.Follow up in 6 months.J30.1 Allergic rhinitis due to pollen Functional Status Description No Information Available Mental Status Description No Information Available Referrals Description No Information Available
--- NOTE | 2018-12-16 20:24 | ED ---
Headache - HPI Summary HPI Summary: Pt is a 68 y/o M presenting to the ED for a chief complaint of headache. Pt is present with his . Pt states that after a robot-assisted mitral valve repair on 11/04/[address] [facility], pt has had intermittent right-sided headaches with aura and visual disturbances. Pt states he was under general anesthesia and on bypass for the surgery. Pt reports the headaches occur multiple times a week, and sometimes occur 3 days in a row. Pt reports that some days, he has no CALI. Pt states that before the surgery, the CALI were left-sided and have increased in frequency. On 12/16/18, pt had a migraine with aura at around 09: 30 with less intensity than is typical for the pt that he rates as 2/10 in severity. Pt reports that his CALI occur with a flicker and visual disturbance that covers of his visual field. Pt denies trouble walking, weakness, confusion, facial droop, or visual disturbance in the room. Pt was at [facility] [place] to have blood drawn to check for INR level and pts had to drive home due to the pts visual disturbance. Pt takes Coumadin and low dose aspirin. 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 - History Of Current Complaint Chief Complaint: EDHeadache Stated Complaint: MIGRANE SYMPTOMS PER PT Time Seen by Provider: 12/16/18 20:08 Hx Obtained From: Patient Onset/Duration: Started weeks ago, Still Present Initially Headache Was: Mild Currently Pain Is: Mild Timing: Intermittent, Lasting:, Weeks Character: Migraine Location of Headache: Diffuse Aggravating Factor: Nothing Allevating Factors: Nothing Associated Signs And Symptoms: Visual Changes - Visual disturbance - Allergies/Home Medications Allergies/Adverse Reactions: Allergies Allergy/AdvReac Type Severity Reaction Status Date / Time paroxetine [From Paxil] Allergy Unknown Verified 12/16/18 21:03 Reaction Details venlafaxine [From Effexor] Allergy Unknown Verified 12/16/18 21:03 Reaction Details Cats Allergy See Comment Uncoded 08/30/18 03:10 Home Medications: Home Medications Ascorbic Acid TAB* [Vitamin C TAB*] 500 mg PO DAILY 12/16/18 [History Confirmed 12/16/18] Aspirin EC TAB* [Ecotrin EC Low Dose 81 MG*] 81 mg PO DAILY 12/16/18 [History Confirmed 12/16/18] Budesonide/Formote 160/4.5(NF) [Symbicort 160/4.5 (NF)] 2 puff INH BID 12/16/18 [History Confirmed 12/16/18] Calcium Carbonate CHEW TAB* [Tums*] 500 mg PO BID PRN 12/16/18 [History Confirmed 12/16/18] Docusate CAP* [Colace Cap*] 100 mg PO BID PRN 12/16/18 [History Confirmed ] Ferrous Gluconate TAB* [Fergon TAB*] 325 mg PO BID 12/16/18 [History Confirmed 12/16/18] Folic Acid TAB* [Folvite TAB*] 1 mg PO DAILY 12/16/18 [History Confirmed ] Furosemide TAB* [Lasix TAB*] 20 mg PO DAILY 12/16/18 [History Confirmed 12/16/18 ] Ibuprofen TAB* [Advil TAB*] 200 mg PO Q8H PRN 12/16/18 [History Confirmed ] LevoCETirizine TAB (NF) [Xyzal TAB (NF)] 5 mg PO DAILY 12/16/18 [History Confirmed 12/16/18] Metoprolol Tartrate TAB* [Lopressor TAB*] 37.5 mg PO BID 12/16/18 [History Confirmed 12/16/18] Multivitamins/Minerals TAB* [Theragran/minerals TAB*] 1 tab PO DAILY 12/16/18 [ History Confirmed 12/16/18] Potassium Chlor TAB* [Klor Con ER TAB*] 10 meq PO DAILY 12/16/18 [History Confirmed 12/16/18] Warfarin TAB(*) [Coumadin TAB(*)] 1 mg PO DAILY 12/16/18 [History Confirmed ] PMH/Surg Hx/FS Hx/Imm Hx Previously Healthy: Yes Endocrine/Hematology History: Denies: Hx Anticoagulant Therapy, Hx Diabetes Cardiovascular History: Reports: Hx Hypertension, Hx Valvular Heart Disease Denies: Hx Angina, Hx Pacemaker/ICD, Other Cardiovascular Problems/Disorders Respiratory History: Reports: Hx Asthma - ON MEDICATION FOR Musculoskeletal History: Reports: Hx Arthritis - LEFT HAND Sensory History: Reports: Hx Cataracts - LEFT, BEGINNING STAGE, Hx Contacts or Glasses Denies: Hx Hearing Aid Opthamlomology History: Reports: Hx Cataracts - LEFT, BEGINNING STAGE, Hx Contacts or Glasses Neurological History: Reports: Hx Migraine - TX WITH EXCEDRIN MIGRAINE AND REST Psychiatric History: Reports: Hx Anxiety - HX OF IN THE PAST, Hx Depression - HX OF IN THE PAST - Surgical History Surgical History: Yes Surgery Procedure, Year, and Place: TONSILLECTOMY A CHILD. BIOPSIES DONE IN A OFFICE SETTING Hx Anesthesia Reactions: No Infectious Disease History: No Infectious Disease History: Denies: Traveled Outside the [place] in Last 30 Days - Family History Known Family History: Positive: Hypertension - Social History Lives: With Family Alcohol Use: Rare Alcohol Amount: couple drinks per month Hx Substance Use: No Substance Use Type: Reports: None Hx Tobacco Use: Yes Smoking Status (MU): Former Smoker Type: Cigarettes Amount Used/How Often: UP TO 1 PACK PER WEEK X 10 YEARS Length of Time of Smoking/Using Tobacco: 10 YEARS Have You Smoked in the Last Year: No Review of Systems Positive: Other - Positive visual disturbance Positive: Other - Negative trouble walking Neurological: Other - Negative confusion or facial droop Positive: Headache - Right-sided with aura, was previously left-sided. Negative : Weakness All Other Systems Reviewed And Are Negative: Yes Physical Exam - Summary Physical Exam Summary: Appearance: Well-appearing, Well-nourished, lying in bed comfortably Skin: Warm, dry, no obvious rash Eyes: sclera anicteric, no conjunctival pallor ENT: mucous membranes moist, pharynx appears normal Neck: Supple, nontender Respiratory: Clear to auscultation, no signs of respiratory distress Cardiovascular: Normal S1, S2. No murmurs. Normal distal pulses in tibial and radial bilaterally. Abdomen: Soft, nontender, normal active bowel sounds present Musculoskeletal: Normal, Strength/ROM Intact Neurological: A&Ox3, awake and alert, mentation is normal, speech is fluent and appropriate, intact visual pritchett Psychiatric: affect is normal, does not appear anxious or depressed Triage Information Reviewed: Yes Vital Signs On Initial Exam: Initial Vitals Temp Pulse Resp BP Pulse Ox 97.9 F 69 17 126/72 98 12/16/18 18:09 12/16/18 18:09 12/16/18 18:09 12/16/18 18:09 12/16/18 18:09 Vital Signs Reviewed: Yes Procedures - Sedation Patient Received Moderate/Deep Sedation with Procedure: No Diagnostics - Vital Signs Vital Signs Temp Pulse Resp BP Pulse Ox 12/16/18 18:09 97.9 F 69 17 126/72 98 - Laboratory Lab Statement: Any lab studies that have been ordered have been reviewed, and results considered in the medical decision making process. - CT Brain CT CT Interpretation Completed By: Radiologist Summary of CT Findings: Brain CT IMPRESSION: No acute intracranial abnormality. Reviewed by ED physician. Re-Evaluation - Re-Evaluation 1st re-eval Re-Evaluation Time: 21:35 Change: Unchanged Comment: At 21:35, pt was updated on imaging results. Headache Course/Dx - Course Course Of Treatment: Pt is a 68 y/o M presenting to the ED for a chief complaint of headache. Pt is present with his . Pt states that after a robot -assisted mitral valve repair on 11/04/[address] [facility], pt has had intermittent right-sided headaches with aura and visual disturbances. Pt states he was under general anesthesia and on bypass for the surgery. Pt reports the headaches occur multiple times a week, and sometimes occur 3 days in a row. Pt reports that some days, he has no CALI. Pt states that before the surgery, the CALI were left-sided and have increased in frequency. On 12/16/18, pt had a migraine with aura at around 09:30 with less intensity than is typical for the pt that he rates as 2/10 in severity. Pt reports that his CALI occur with a flicker and visual disturbance that covers of his visual field. Pt denies trouble walking , weakness, confusion, facial droop, or visual disturbance in the room. Pt was at [facility] on 12/16/18 to have blood drawn to check for INR level and pts had to drive home due to the pts visual disturbance. Pt takes Coumadin and low dose aspirin. On exam, pt has intact visual pritchett. Brain CT IMPRESSION: No acute intracranial abnormality. At 21:35, pt was updated on imaging results. Pt will be discharged home with a diagnosis of migraine headache. Follow up with PCP. - Diagnoses Provider Diagnoses: Migraine headache Discharge ED - Sign-Out/Discharge Documenting (check all that apply): Patient Departure - Discharge - Discharge Plan Condition: Good Disposition: HOME Patient Education Materials: Migraine Headache (ED) Referrals: Shannon Osborne MD [Primary Care Provider] - If Needed Additional Instructions: It is not uncommon to experience worsening of migraines after a physiological stress, especially going on heart/lung bypass. Hopefully it will settle down over the coming weeks. Fortunately the CT scan did not show any evidence of bleeding. Your INR test came back subtherapeutic, so you will need to touch base with the coumadin prescriber for instructions on the coumadin going forward. - Billing Disposition and Condition Condition: GOOD Disposition: Home - Attestation Statements Document Initiated by David: Yes Documenting Jigaribe: Marilynn Saunders Provider For Whom David is Documenting (Include Credential): Christiano Chapin MD Scribe Attestation: I, Marilynn Saunders, scribed for Christiano Chapin MD on 01/07/19 at 1832. Scribe Documentation Reviewed: Yes Provider Attestation: The documentation as recorded by the Marilynn florez accurately reflects the service I personally performed and the decisions made by me, Christiano Chapin MD Status of Scribe Document: Viewed
[2018-12-16 21:53] VITALS: BP 124/70
== END 2018-12-16 21:52 | disposition home or self-care (01) ==
LOC: ED 17:41
DX: G43.909 Migraine, unspecified, not intractable, without status migrainosus (principal); I10 Essential (primary) hypertension; Z79.01 Long term (current) use of anticoagulants; Z79.82 Long term (current) use of aspirin; Z87.891 Personal history of nicotine dependence; Z79.899 Other long term (current) drug therapy
CPT/HCPCS: 70450; 99282

== ENCOUNTER 2019-04-13 06:38 | Day surgery (SDC) | payer MEDICARE ==
[~2019-04-13 06:38] MED LIST changes: -Acetaminophen TAB* 325 MG PO PRN; +Buffered Lidocaine 1% SYRIN* 1 ML/SYRINGE INTRADERM ONE; +Dexamethasone IV* 4 MG/ML 1 ML (4 MG) IV SLOW PU ONE; -Diazepam TAB(*) 5 MG ONE; +Famotidine IV* 10 MG/ML 2 ML (20 mg) IV ONE; -Heparin 2 UNITS/ML IVPREMIX* 2,000 UNIT/1,000 ML BAG IV ONE; -Heparin(*) 1000 UNIT/ML 10 ML VIAL CATH LAB IV ONE; -Iohexol 350 (CONTRAST) 200 ML MDV IV ONE; +Lactated Ringers 1000 ML Bag* 1,000 ML IV SCH; -Lidocaine 1% INJ* 10 MG/ML 30 ML SDV ONE; -Midazolam* 1 MG/ML 5 ML VIAL (5 MG) ONE; -NS 0.9% 1000 ML** 1,000 ML IV SCH; -VERAPAMIL 2.5 MG/ML 2 ML VIAL ** 5 mg/2 ml ONE; -diPHENhydraMINE PO* 25 MG ONE; -fentaNYL* 50 MCG/ML 2 ML VIAL (100 MCG VIAL) ONE; -nitroGLYCERIN DRIP* 25,000 MCG/250 ML BTL ONE
[2019-04-13] MEDS ORDERED: Dexamethasone IV* 4 MG/ML 1 ML (4 MG) ONE (07:40)
[2019-04-13] MEDS ORDERED: Buffered Lidocaine 1% SYRIN* 1 ML/SYRINGE INTRADERM ONE (07:40)
[2019-04-13] MEDS ORDERED: ceFAZolin 2 GM PREMIX in ORs 2 GM/50 ML BAG ONE (07:40)
[2019-04-13] MEDS ORDERED: Famotidine IV* 10 MG/ML 2 ML (20 mg) ONE (07:41)
[2019-04-13] MEDS ORDERED: Bupivacaine 0.25% SDV PF* 10 ML VIAL INJ ONE (08:09)
[2019-04-13] MEDS ORDERED: Bupivacaine 0.25% SDV* 30 ML ONE (08:18)
[2019-04-13] MEDS ORDERED: Ketorolac INJ* 30 MG/ML 1 ML VIAL ONE (08:27)
[2019-04-13] MEDS ORDERED: Ondansetron INJ* 2 MG/ML VIAL ONE (08:27)
[2019-04-13] MEDS ORDERED: Midazolam* 1 MG/ML 5 ML VIAL (5 MG) ONE (08:27)
[2019-04-13] MEDS ORDERED: fentaNYL* 50 MCG/ML 5 ML VIAL (250 MCG VIAL) ONE (08:27)
[2019-04-13] MEDS ORDERED: Propofol* 10 MG/ML 20 ML BTL ONE (08:27)
[2019-04-13] MEDS ORDERED: DiMENhydriNATE IV* 50 MG/ML VIAL IV PUSH PRN (09:42)
[2019-04-13] MEDS ORDERED: oxyCODONE/Acetamin 5/325 MG* TAB PO PRN (09:42)
[2019-04-13] MEDS ORDERED: HYDROmorphone INJ1* 1 MG/ML SYRINGE IV PRN (09:42)
[2019-04-13] MEDS ORDERED: Ondansetron INJ* 2 MG/ML VIAL IV PRN (09:42)
[2019-04-13] MEDS ORDERED: Naloxone* 0.4 MG/ML 1 ML VIAL IV PRN (09:42)
[2019-04-13] MEDS ORDERED: fentaNYL* 50 MCG/ML 2 ML VIAL (100 MCG VIAL) IV PRN (09:42)
[2019-04-13] MEDS ORDERED: oxyCODONE/Acetamin 5/325 MG* TAB ONE (11:35)
[2019-04-13 11:53] VITALS: BP 134/87
--- NOTE | 2019-04-13 22:03 | OP ---
DATE OF OPERATION: 04/13/19 [facility] DATE OF : 54 SURGEON: Christophe Vásquez MD BATTERY TEST ENGINEER: NAVI Little. An human services assistant was needed for the entirety of the procedure to aid in positioning of the arm and retraction. ANESTHESIOLOGIST: Dr. Underwood. ANESTHESIA: General. PRE-OP DIAGNOSES: 1. 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 2. 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 POST-OP DIAGNOSES: 1. 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 2. 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 OPERATIVE PROCEDURE: 1. Right thumb carpometacarpal arthroplasty with trapeziectomy. 2. Right distally based split flexor carpi radialis tendon transfer for thumb suspension and tendon interposition. 3. Right partial trapeziectomy. INDICATIONS: Mr. Kennedy is 68 years old. He has done well with a left thumb and wrist surgery. We talked about treatment options. I told him I could not guarantee him the same result on the right as he got on the left. He understands ; he wishes to proceed. ESTIMATED BLOOD LOSS: 2 mL. COMPLICATIONS: None. FINDINGS: See above and below. DESCRIPTION OF PROCEDURE: Mr. Kennedy was seen in the preoperative holding area. The correct site and side of procedure were identified. We came back to the operating room and the arm was prepped and draped in the usual fashion and a time-out was performed. The arm was exsanguinated with the Esmarch and the tourniquet inflated. I made a longitudinal incision over the dorsal radial thumb base. Dissection was carried down. Full-thickness flaps were raised off the capsule. The radial artery was dissected free and mobilized and protected. I then raised subperiosteal and capsular flaps to expose the entirety of the trapezium. The trapezium was then removed in piecemeal fashion preserving the FCR tendon in the base of the wound. There was full-thickness cartilage loss in the distal pole of the scaphoid. I then turned my attention to the scaphotrapezoid joint. I took the osteotome and I excised the proximal 3 to 4 mm of the trapezoid bone. This came out in a nice piece. This created a nice space between the distal pole of the scaphoid and the proximal trapezoid. I irrigated out the wound and then I put a large amount of bone wax on the undersurface of the cancellous bone at that trapezoid to try to prevent any bony regrowth. I then came back to the thumb metacarpal base and I made bone tunnel from the dorsal radial thumb metacarpal base exiting out the volar ulnar articular surface near the insertion of the FCR tendon. This was done with sequentially larger drill bit. The wound was irrigated out and attention was turned to the tendon transfer. I made three 1-cm transverse incisions over the FCR tendon, first just proximal to the wrist flexion crease and the next two about 7 or 8 cm proximal to the last. The tendon sheath was released along the length of the tendon. The tendon was brought out of the wound distally and split longitudinally with a 15 blade. A 26-gauge wire was passed into the tendon split and I did not pull the 26-gauge wire up into the proximal wound under the skin using a Kely clamp; this really split the tendon and released half the tendon and the musculotendinous junction. Two 26-gauge wires were used to shuttle the free tail of the tendon down to the thumb base wound where the tendon split was taken all the way at the base of the second metacarpal. I then passed half the free tail of the tendon through the bone tunnel back around the intact limb and then secured the tendon transfer with three [id number] 3-0 Ethibond sutures , the first sewing all three limbs of the tendon transfer together, the last two sewing intact limb to intact limb. To complete the surgery, I went ahead and took the free end of the tendon and made it into a mat and secured the edges of the tendon mat with 4-0 Ethibond suture. The tendon mat was then placed as an interposition between the distal pole of the scaphoid and the proximal trapezoid. At this point, everything was looking good. The wound was irrigated out, the capsule was closed with 4-0 nylon suture. The capsule was closed with 4-0 Vicryl suture. All the wounds were closed with 4-0 nylon suture. 0.25% Marcaine had been infiltrated. Wounds were dressed and thumb spica splint with the IP joint free was applied. He was taken to the recovery room in stable condition. [id number]/[facility] #: [id number] [facility]
== END 2019-04-13 11:59 | disposition home or self-care (01) ==
LOC: OR 06:38
PROVIDERS: ATTEND Orthopaedic Surgery Hand Surgery
DX: M18.11 Unilateral primary osteoarthritis of first carpometacarpal joint, right hand (principal); M19.031 Primary osteoarthritis, right wrist; J45.909 Unspecified asthma, uncomplicated; E03.9 Hypothyroidism, unspecified; F41.8 Other specified anxiety disorders
CPT/HCPCS: 88304; 88311; A9270-GY; J0690; J1100; J1885; J2250; J2405; J2704; J3010; J3490

== ENCOUNTER 2020-07-05 09:27 | Observation (INO) ==
[~2020-07-05 09:27] MED LIST changes: +Buffered Lidocaine 1% SYRIN 1 ml INTRADERM ONE; -Buffered Lidocaine 1% SYRIN* 1 ML/SYRINGE INTRADERM ONE; -Dexamethasone IV* 4 MG/ML 1 ML (4 MG) IV SLOW PU ONE; +Famotidine IV 10 MG/ML 2 ml VIAL (20 mg) IV ONE; +Famotidine IV 10 MG/ML 2 ml VIAL (20 mg) ONE; -Famotidine IV* 10 MG/ML 2 ML (20 mg) IV ONE; -Lactated Ringers 1000 ML Bag* 1,000 ML IV SCH; +Lactated Ringers 1000 ml BAG 1,000 ML IV SCH; +Lidocaine 1% MPF 5 ML VIAL ONE; +Midazolam 2 mg/2 ml VIAL 1 mg/ml 2 ml VIAL (2 mg) ONE; +ROPIVACAINE 5 MG/ML 30 ML BTL (0.5%) ONE; +ceFAZolin 2 GM PREMIX 2 GM/50 ML BAG ONE; +fentaNYL 100 mcg/2 ml 50 MCG/ML VIAL ONE
[2020-07-05] MEDS ORDERED: Midazolam 5 mg/5 ml VIAL 1 mg/ml 5 ml VIAL (5 mg) ONE (10:53)
[2020-07-05] MEDS ORDERED: Propofol 0 MG/0 ML BTL ONE (10:56)
[2020-07-05] MEDS ORDERED: Ropivacaine 5 MG/ML 20 ML VIAL 0.5% (100 MG) ONE (11:43)
[2020-07-05] MEDS ORDERED: DiMENhydriNATE IV 50 mg/ml 1 ml VIAL IV PUSH PRN (11:44)
[2020-07-05] MEDS ORDERED: Naloxone 0.4 mg VIAL 0.4 mg/ml 1 ml VIAL IV PRN (11:44)
[2020-07-05] MEDS ORDERED: HYDROmorphone 1 MG/1 ML SYRINGE IV PRN (11:44)
[2020-07-05] MEDS ORDERED: oxyCODONE/Acetamin 5/325 mg TAB PO PRN (11:44)
[2020-07-05] MEDS ORDERED: Propofol 10 MG/ML 20 ML BTL ONE (14:02)
[2020-07-05] MEDS ORDERED: Lactulose 30 ml UDC PO PRN (15:13)
[2020-07-05] MEDS ORDERED: Magnesium Hydroxide LIQ 30 ML UDC PO PRN (15:13)
[2020-07-05] MEDS ORDERED: Morphine 2 MG/ML SYRINGE IV PRN (15:13)
[2020-07-05] MEDS ORDERED: diPHENhydraMINE IV 50 MG/ML 1 ml VIAL (BENADRYL) IV PRN (15:13)
[2020-07-05] MEDS ORDERED: diPHENhydraMINE 25 mg TAB PO PRN (15:13)
[2020-07-05] MEDS ORDERED: Prochlorperazine 5 mg/ml 2 ml VIAL (10 mg) IV PRN (15:21)
[2020-07-05] MEDS ORDERED: oxyCODONE/Acetamin 5/325 mg TAB ONE (16:20)
[2020-07-05] MEDS: Lactated Ringers 1000 ml BAG 1,000 ML IV SCH (16:45)
[2020-07-05] MEDS ORDERED: Midazolam 2 mg/2 ml VIAL 1 mg/ml 2 ml VIAL (2 mg) ONE (16:46)
[2020-07-05] MEDS: ceFAZolin 1 GM ADVAN 1 GM in NS 0.9% 50 ML 50 ML IVPB SCH (20:13)
[2020-07-05] MEDS: Magnesium Hydroxide LIQ 30 ML UDC PO SCH (20:17)
[2020-07-06] MEDS: Lactated Ringers 1000 ml BAG 1,000 ML IV SCH (02:24)
[2020-07-06 05:36] LABS: Hematocrit 36 % (42-52); Hemoglobin 12.1 g/dL (14.0-18.0); Mean Platelet Volume 8.6 fL (7.4-10.4); Platelet Count 165 10^3/uL (150-450)
[2020-07-06] MEDS: ceFAZolin 1 GM ADVAN 1 GM in NS 0.9% 50 ML 50 ML IVPB SCH ×2 (05:47→13:09)
[2020-07-06 05:50] LABS: Calcium 7.9 mg/dL (8.6-10.3); EGFR African American 81.6 (>60); EGFR Non-African American 67.5 (>60); Potassium 4.5 mmol/L (3.5-5.0)
[2020-07-06] MEDS ORDERED: Albuterol HFA INHALER 8 gm MDI INH PRN (08:30)
[2020-07-06] MEDS ORDERED: Vitamin THERAPEUTIC TAB PO SCH (09:00)
[2020-07-06] MEDS ORDERED: Mometasone 220 MCG MDI INH SCH (09:00)
[2020-07-06] MEDS ORDERED: Tiotropium Brom/Olodaterol MDI INH SCH (09:00)
[2020-07-06] MEDS: Magnesium Hydroxide LIQ 30 ML UDC PO SCH (09:52)
[2020-07-06 11:13] VITALS: BP 101/52
== END 2020-07-06 16:30 | disposition home or self-care (01) ==
LOC: OR 09:27 → SSU 09:27
PROVIDERS: ADMIT Orthopaedic Surgery Adult Reconstructive Orthopaedic Surgery; ATTEND Orthopaedic Surgery Adult Reconstructive Orthopaedic Surgery